=== PATIENT | male | born 1985 | race African-American/Black ===

== ENCOUNTER 2017-06-24 23:18 | Emergency (ER) | payer OTHER ==
[~2017-06-24] VITALS: Ht 180.3 cm; Wt 75.1 kg
[~2017-06-24 23:18] MED LIST: CIPR-255 PO
[2017-06-24 23:20] VITALS: TEMP 36.5; Ht 180.3 cm; Wt 75.1 kg
[2017-06-24] MEDS ORDERED: AMOXICILLIN/CLAVULANATE TAB 875 MG TAB PO ONE (23:45)
[2017-06-24] MEDS ORDERED: EMPTY 8 DRAM VIAL ONE (23:47)
[2017-06-24] MEDS ORDERED: AMOX875T PO (23:50)
--- NOTE | 2017-06-24 23:50 | EMERGENCY ROOM VISIT NOTE ---
History First contact with patient: 23:28 Chief Complaint: EAR PAIN Stated Complaint: SOMETHING IN LEFT EAR History of Present Illness The patient is a 32 year old male who presents to the Emergency Room with complaints of a mass in his left ear. The patient reports that he has had a growth in his left ear for several months. He states that over the past 2 weeks , it has become more swollen and painful. He rates the discomfort 6/10 and describes the pain as throbbing. He sometimes has difficulty hearing due to the mass. He has never been evaluated by his primary care provider or any specialist for this in the past. He denies any fevers. Review of Systems A complete 10 point review of systems was reviewed with the patient with pertinent positives and negatives as per history of present illness. All else were negative. Social History Smoking Status: Never Smoker Current/Historical Medications Scheduled Amoxicillin & Pot Clavulanate (Augmentin 875-125 mg), 1 TAB PO BID Physical Exam Vital Signs Date Time Temp Pulse Resp B/P (MAP) Pulse Ox O2 Delivery O2 Flow Rate FiO2 06/24/17 23:54 77 14 126/90 99 06/24/17 23:20 36.5 87 16 129/84 97 Room Air Physical Exam VITALS: Vitals are noted on the nurse's note and reviewed by myself. Vital signs stable. GENERAL: This is a 32-year-old male, in no acute distress, nondiaphoretic, well- developed well-nourished. SKIN: The skin was without rashes. EARS: There is a fleshy mass in the anterior aspect of the left external auditory canal which is slightly tender to palpation. Right external auditory canal is clear. Bilateral tympanic membranes are pearly iraheta. EYES: Pupils equal round and reactive to light and accommodation. MOUTH: Mucous membranes moist. Tonsils are not enlarged. Pharynx without erythema or exudate. NECK: Supple without nuchal rigidity. No lymphadenopathy. NEURO: Patient was alert and oriented to person place and time. Medical Decision & Procedures Medications Administered Medications (Trade) Dose Ordered Sig/Darius Route Start Time Stop Time Status Last Admin Dose Admin Amoxicillin/ Clavulanate Potassium (Augmentin Tab) 1,750 mg UD ONCE PO 06/24/17 23:45 06/24/17 23:46 DC 06/24/17 23:49 1,750 MG Medical Decision Differential diagnosis includes melanoma, squamous cell carcinoma, cholesteatoma , osteosarcoma, abscess, among others. The patient was evaluated as above. He presents complaining of a mass in his left ear canal. Exam does show a mass which is mildly tender to palpation. It is unclear what this mass represents at this time. It has become swollen and painful recently. Patient will be placed on a course of Augmentin in case with represents infection and was given information for ENT follow up. He was advised to return here for any worsening or new/concerning symptoms. He verbalized understanding of my assessment and treatment plan and was discharged home in good condition. Medication Reconcilliation Current Medication List: was personally reviewed by me Blood Pressure Screening Patient's blood pressure: Normal blood pressure Impression Primary Impression: Mass of left ear canal Departure Information Dispostion Home / Self-Care Condition GOOD Prescriptions Amoxicillin & Pot Clavulanate (Augmentin 875-125 mg) 1 Tab Tab 1 TAB PO BID for 10 Days, #20 TAB Prov: Jaci Stearns ., DEBOR[place] 06/24/17 Referrals No Doctor, Assigned (PCP) Allen Vo D.O. Patient Instructions My [facility] Additional Instructions You were prescribed Augmentin to be taken twice daily as prescribed. This is an antibiotic. All antibiotics have the potential to cause diarrhea. Stop this medication and contact a medical provider if you were to develop any significant adverse side effects including: wheezing, shortness of breath, passing out, vomiting, or a diffuse rash. Always take antibiotics as directed and COMPLETE the ENTIRE course regardless of the improvement of your symptoms. For pain control, you can use the following [id number] medicines (if >12 yo): - Regular strength (325mg/tab) Tylenol (acetaminophen) 2 tabs every 4-6 hours as needed. Do not exceed 12 tablets in a 24 hour period. Avoid taking more than 4 grams (4000 mg) of Tylenol per day. This includes any other sources of acetaminophen you may take on a regular basis. - Regular strength (200 mg/tab) Advil (ibuprofen) 1-2 tabs every 4-6 hours as needed. Do not exceed a dose of 3200 mg per day. Follow-up with ENT for further evaluation of your left ear mass. Return to the emergency department with any worsening or new/concerning symptoms.
[2017-06-24 23:54] VITALS: BP 126/90; PULSE 77; O2SAT 99
== END 2017-06-24 23:54 | disposition home or self-care (01) ==
LOC: C.EDB 23:19 → C.EDA 23:54
DX: H93.8X2 Other specified disorders of left ear (principal); H92.02 Otalgia, left ear